=== PATIENT | female | born 1985 | race Two or more races ===

== ENCOUNTER 2017-04-19 00:47 | Emergency (ER) | payer OTHER ==
[~2017-04-19] VITALS: Ht 160 cm; Wt 53.1 kg
--- NOTE | 2017-04-19 01:10 | NUR ---
Pt is received alert, responsive asshe came in with family at bedside c/o Epigastric pain accompanied by Nausea with out Vomiting. Her care continue as awaits MD orders.
[2017-04-19] MEDS ORDERED: PANTOPRAZOLE SODIUM 40 MG TABLET.DR PO ONE ×2 (02:00→02:21)
[2017-04-19] MEDS ORDERED: MAG HYDROX/AL HYDROX/SIMETH 30 ML LIQUID UDC PO ONE (02:00)
[2017-04-19] MEDS ORDERED: LIDOCAINE VISCUS 2% 15 ML UDC MM ONE (02:00)
--- NOTE | 2017-04-19 02:05 | NUR ---
Pt is resting as medicated as ordered . Her care continue while monitor and awaits test results.
[2017-04-19] MEDS ORDERED: LIDOCAINE VISCUS 2% 15 ML UDC ONE (02:20)
[2017-04-19] MEDS ORDERED: MAGNESIUM HYDROXIDE 30 ML LIQUID UDC ONE (02:20)
--- NOTE | 2017-04-19 02:53 | NUR ---
Patient discharged to home in stable conditon. Written and verbal after care instructions given. Patient verbalizes understanding of instructions.
== END 2017-04-19 02:54 | disposition home or self-care (01) ==
LOC: ER 00:52
DX: K29.70 Gastritis, unspecified, without bleeding (principal)
CPT/HCPCS: A4663

== ENCOUNTER 2018-05-13 14:47 | Emergency (ER) | payer OTHER ==
[~2018-05-13] VITALS: Ht 157.5 cm; Wt 51.7 kg
[2018-05-13 15:40] VITALS: BP 121/83
--- NOTE | 2018-05-13 15:58 | NUR ---
Patient discharged to home in stable conditon. Written and verbal after care instructions given. Patient verbalizes understanding of instructions.
== END 2018-05-13 15:59 | disposition home or self-care (01) ==
LOC: ER 14:47
DX: J02.9 Acute pharyngitis, unspecified (principal)
CPT/HCPCS: 87400; A4663

== ENCOUNTER 2018-12-15 23:57 | Emergency (ER) | payer OTHER ==
[~2018-12-15] VITALS: Ht 160 cm; Wt 51.7 kg
--- NOTE | 2018-12-16 00:05 | NUR ---
PT RECEIVED FROM HOME C/O EPIGASTRIC PAIN AND NAUSEA X 3DAYS Patient is AOx4, speaking in complete sentences, speech is clear. Able to follow /comprehend directions. Gait is stable. No cardiovascular distress noted. Rate/rhythm regular. No CP. No respiratory distress noted. Respirations even , unlabored, symmetrical chest rise. No adventitious sounds noted. -ABD distention, pain 8/10. Bowel sounds present and normoactive in all four quadrants. Denies Fever/Chills. No recent travel. No pertinent medical history/NKDA. LBM- yesterday. Continent of bowel and bladder function. SAFETY Patient in bed, bed in lowest position. Siderails up x 2. Call light within reach. Will continue to monitor accordingly
[2018-12-16 00:30] LABS: BASOPHILS % (AUTO) 0.4 % (0.0-2.0); EOSINOPHILS # (AUTO) 0.1 K/uL (0.0-0.7); EOSINOPHILS % (AUTO) 1.5 % (0.0-7.0); HEMATOCRIT 40.2 % (31.2-41.9); HEMOGLOBIN 13.6 g/dL (10.9-14.3); LYMPHOCYTES # (AUTO) 2.3 K/uL (20.0-40.0); LYMPHOCYTES % (AUTO) 27.5 % (20.5-51.5); MEAN CORPUSCULAR HEMOGLOBIN 30.2 uug (24.7-32.8); MEAN CORPUSCULAR HGB CONC 34 g/dL (32.3-35.6); MEAN CORPUSCULAR VOLUME 89.3 fL (75.5-95.3); MONOCYTES # (AUTO) 0.6 K/uL (2.0-10.0); MONOCYTES % (AUTO) 7.3 % (0.0-11.0); NEUTROPHILS # (AUTO) 5.3 K/uL (1.8-8.9); NEUTROPHILS % (AUTO) 63.3 % (38.5-71.5); PLATELET COUNT (AUTO) 248 K/uL (179-408); WHITE BLOOD COUNT (AUTO) 8.5 K/uL (3.8-11.8)
[2018-12-16 00:49] LABS: BILIRUBIN,DIRECT 0.1 mg/dL (0.0-0.2); BILIRUBIN,TOTAL 0.3 mg/dL (0.2-1.0); CREATININE 0.8 mg/dL (0.6-1.3); POTASSIUM 4.6 mmol/L (3.5-5.1); TOTAL PROTEIN, SERUM 7.7 g/dL (6.4-8.2)
[2018-12-16] MEDS ORDERED: PANTOPRAZOLE SODIUM 40 MG TABLET.DR PO ONE ×2 (01:15→01:24)
[2018-12-16] MEDS ORDERED: ACETAMINOPHEN 325 MG TABLET PO ONE (01:15)
[2018-12-16] MEDS ORDERED: ACETAMINOPHEN 325 MG TABLET ONE (01:24)
--- NOTE | 2018-12-16 01:24 | NUR ---
ABLE TO TOLERATE MEDS ORDERED. NO NOTED REACTIONS Patient discharged to home in stable conditon. Written and verbal after care instructions given. Patient verbalizes understanding of instructions. AMBULATORY WITH STABLE. ALL BELONGINGS WITH PT
[2018-12-16 01:31] LABS: *URINE HCG, QUAL NEGATIVE (NEGATIVE)
[2018-12-16 01:45] VITALS: BP 120/80
== END 2018-12-16 01:05 | disposition home or self-care (01) ==
LOC: ER 23:59
DX: R10.13 Epigastric pain (principal)
CPT/HCPCS: 36415; 83690; 84703; 85025; A4663

== ENCOUNTER 2019-03-16 23:50 | Emergency (ER) | payer OTHER ==
[~2019-03-16] VITALS: Ht 165.1 cm; Wt 50.3 kg
[2019-03-17] MEDS ORDERED: ONDANSETRON ODT 4 MG TAB.RAPDIS SL ONE
[2019-03-17] MEDS ORDERED: HYDROMORPHONE 1 MG/1 ML DISP.SYRIN IM ONE
[2019-03-17] MEDS ORDERED: SILVER SULFADIAZINE 1% CREAM 50 GM TP ONE
[2019-03-17] MEDS ORDERED: ONDANSETRON ODT 4 MG TAB.RAPDIS ONE (00:04)
[2019-03-17] MEDS ORDERED: HYDROMORPHONE 1 MG/1 ML DISP.SYRIN ONE ×3 (00:04→01:34)
[2019-03-17] MEDS ORDERED: TDAP DIPH,PERTUSS,TET VAC/PF 0.5 ML DISP.SYRIN IM ONE ×2 (00:05)
[2019-03-17] MEDS ORDERED: SILVER SULFADIAZINE 1% CREAM 25 GM TUBE TP ONE (00:05)
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
[2019-03-17] MEDS ORDERED: HYDROMORPHONE 1 MG/1 ML DISP.SYRIN IV ONE ×2 (01:15→01:45)
[2019-03-17] MEDS ORDERED: METOCLOPRAMIDE HCL 10 MG/2 ML VIAL ONE (01:57)
[2019-03-17] MEDS ORDERED: diphenhydrAMINE 50 MG/1 ML VIAL ONE ×2 (01:57→01:59)
[2019-03-17] MEDS ORDERED: diphenhydrAMINE 50 MG/1 ML VIAL IV ONE (02:00)
[2019-03-17] MEDS ORDERED: METOCLOPRAMIDE HCL 10 MG/2 ML VIAL IV ONE (02:00)
--- NOTE | 2019-03-17 02:39 | NUR ---
PT ASLEEP BUT EASILY ROUSED STATES PAIN IS TOLERATED AT THIS TIME SEMI BURNHAM'S, HR AT 104BPM SIDERAILSX2 UP BED AT LOWEST POSITION
--- NOTE | 2019-03-17 03:19 | NUR ---
Patient discharged to home in stable conditon. Written and verbal after care instructions given. Patient verbalizes understanding of instructions. AMBULATORY W/ STABLE GAIT ALL BELONGINGS W/ PT DC IV, DRESSED BOYFRIEND WILL DRIVE
[2019-03-17 03:51] VITALS: BP 128/65
== END 2019-03-17 03:15 | disposition home or self-care (01) ==
LOC: ER 23:50
DX: T23.001A Burn of unspecified degree of right hand, unspecified site, initial encounter (principal); X08.8XXA Exposure to other specified smoke, fire and flames, initial encounter; Y93.89 Activity, other specified; Y92.89 Other specified places as the place of occurrence of the external cause; Y99.8 Other external cause status
CPT/HCPCS: 16000; 90715; 96372 ×2; 96374; 96375; 99284; J1170 ×3; J1200 ×2; J2765; A4663; Q0162

== ENCOUNTER 2019-12-06 19:18 | Emergency (ER) | payer OTHER ==
[~2019-12-06] VITALS: Ht 160 cm; Wt 49.0 kg
--- NOTE | 2019-12-06 19:30 | NUR ---
Dr. uHerta at bedside for MSE. Covid 19 protocols followed.
--- NOTE | 2019-12-06 19:54 | NUR ---
Patient discharged to home in stable condition. Written and verbal after care instructions given. Patient verbalizes understanding of instructions. Stressed follow up or return to ER for worsening s/s. COVID 19 home care instructions given. Ambulated out of ER in steady gait.
[2019-12-06 19:55] VITALS: BP 110/62
== END 2019-12-06 19:57 | disposition home or self-care (01) ==
LOC: ER 19:18
DX: R05 Cough (principal); J02.9 Acute pharyngitis, unspecified; Z20.828 Contact with and (suspected) exposure to other viral communicable diseases; F17.290 Nicotine dependence, other tobacco product, uncomplicated
CPT/HCPCS: A4663

== ENCOUNTER 2020-05-24 14:12 | Emergency (ER) | payer OTHER ==
[~2020-05-24] VITALS: Ht 160 cm; Wt 49.9 kg
--- NOTE | 2020-05-24 14:24 | NUR ---
PT EXAMINED BY DR BRAUN.
[2020-05-24] MEDS ORDERED: KETOROLAC TROMETHAMINE 30 MG INJ IM ONE (14:30)
[2020-05-24] MEDS ORDERED: NAPR-1160 PO ×2 (14:32→14:33)
[2020-05-24] MEDS ORDERED: KETOROLAC TROMETHAMINE 30 MG INJ ONE (14:33)
--- NOTE | 2020-05-24 14:43 | NUR ---
MEDICATED PER MD ORDER. NASAL SPECIMEN OBTAINED FOR COVID TEST. DISCHARGED INSTRUCTIONS RENDERED,
[2020-05-24 14:44] VITALS: BP 122/72
== END 2020-05-24 14:45 | disposition home or self-care (01) ==
LOC: ER 14:13
DX: R50.9 Fever, unspecified (principal); M79.10 Myalgia, unspecified site; R63.0 Anorexia; Z20.822 Contact with and (suspected) exposure to COVID-19; F17.200 Nicotine dependence, unspecified, uncomplicated
CPT/HCPCS: 96372; 99283; J1885; U0003; A4663

== ENCOUNTER 2020-09-26 14:39 | Emergency (ER) | payer OTHER ==
[~2020-09-26] VITALS: Ht 160 cm; Wt 49.9 kg
[~2020-09-26 14:39] MED LIST: NAPR-1160 PO
--- NOTE | 2020-09-26 15:50 | NUR ---
at bedside for assessment
[2020-09-26] MEDS ORDERED: FLUORESCEIN SODIUM 1 MG STRIP OP ONE (16:00)
[2020-09-26] MEDS ORDERED: TETRACAINE HCL 0.5% OPHT DROP 2 ML BOTTLE OP ONE (16:00)
[2020-09-26] MEDS ORDERED: FLUORESCEIN SODIUM 1 MG STRIP ONE (16:00)
[2020-09-26] MEDS ORDERED: TETRACAINE HCL 0.5% OPHT DROP 2 ML BOTTLE ONE (16:00)
[2020-09-26] MEDS ORDERED: GENT5DRO4 EACHEYE (16:07)
--- NOTE | 2020-09-26 16:14 | NUR ---
Patient discharged to home in stable condition. Patient noted walking with steady gait, no signs of distress noted. Rx given, took all belongings. Written and verbal after care instructions given. Patient verbalizes understanding of instructions. Stressed follow up or return to ER for worsening s/s.
[2020-09-26 16:23] VITALS: BP 109/70
== END 2020-09-26 16:20 | disposition home or self-care (01) ==
LOC: ER 14:44
DX: H10.9 Unspecified conjunctivitis (principal)
CPT/HCPCS: A4663

== ENCOUNTER 2024-02-14 19:21 | Emergency (ER) | payer OTHER ==
[~2024-02-14] VITALS: Ht 160 cm; Wt 49.9 kg
[~2024-02-14 19:21] MED LIST changes: +GENT5DRO4 EACHEYE
[2024-02-14] MEDS ORDERED: RABIES IMMUNE GLOBULIN/PF 300 UNIT/ML 2 ML VIAL IM ONE (20:37)
[2024-02-14] MEDS ORDERED: RABIES VACCINE (PCEC)/PF 2.5 UNIT ML IM ONE (20:49)
[2024-02-14] MEDS: RABIES IMMUNE GLOBULIN/PF 300 UNIT/ML 2 ML VIAL IM ONE (20:59)
[2024-02-14] MEDS: RABIES VACCINE (PCEC)/PF 2.5 UNIT ML IM ONE (21:01)
[2024-02-14] MEDS ORDERED: AMOXICILLIN-CLAVUL 875-125MG TABLET ONE (21:02)
[2024-02-14] MEDS: AMOXICILLIN-CLAVUL 875-125MG TABLET PO ONE (21:06)
[2024-02-14] MEDS ORDERED: AMOX-430 PO (21:13)
[2024-02-14 21:21] VITALS: BP 101/71; TEMP 98; O2SAT 100
== END 2024-02-14 21:22 | disposition home or self-care (01) ==
LOC: ER 19:24
DX: S71.132A Puncture wound without foreign body, left thigh, initial encounter (principal); F17.200 Nicotine dependence, unspecified, uncomplicated; Z79.899 Other long term (current) drug therapy; Z60.2 Problems related to living alone; W54.0XXA Bitten by dog, initial encounter; Y93.89 Activity, other specified; Y92.89 Other specified places as the place of occurrence of the external cause; Y99.8 Other external cause status
CPT/HCPCS: 90376; A4606; A4663